=== PATIENT | female | born 1975 | race Caucasian/White ===

== ENCOUNTER 2019-01-30 12:05 | Emergency (ER) | payer MEDICAID ==
[~2019-01-30] VITALS: Ht 157.5 cm; Wt 65.9 kg
[~2019-01-30 12:05] MED LIST: ASPI-144 PO; ONDA4TAB12 PO
[2019-01-30 12:22] VITALS: BP 150/109
== END 2019-01-30 13:43 | disposition home or self-care (01) ==
LOC: ER 12:05
DX: S80.12XA Contusion of left lower leg, initial encounter (principal); F10.99 Alcohol use, unspecified with unspecified alcohol-induced disorder; Z59.0 Homelessness; Z56.0 Unemployment, unspecified; Z79.899 Other long term (current) drug therapy; X58.XXXA Exposure to other specified factors, initial encounter; Y93.89 Activity, other specified; Y92.89 Other specified places as the place of occurrence of the external cause; Y99.8 Other external cause status; Y90.9 Presence of alcohol in blood, level not specified
CPT/HCPCS: 99281

== ENCOUNTER 2019-09-23 11:16 | Emergency (ER) | payer MEDICAID ==
[~2019-09-23] VITALS: Ht 157.5 cm; Wt 61.4 kg
[2019-09-23 11:26] VITALS: BP 144/100
[2019-09-23] MEDS ORDERED: ALBU8HFA PO (11:34)
[2019-09-23] MEDS ORDERED: PRED20TA PO (11:34)
== END 2019-09-23 12:29 | disposition home or self-care (01) ==
LOC: ER 11:18
DX: J06.9 Acute upper respiratory infection, unspecified (principal); R05 Cough; Z20.828 Contact with and (suspected) exposure to other viral communicable diseases; Z72.89 Other problems related to lifestyle; Z59.0 Homelessness; Z79.899 Other long term (current) drug therapy
CPT/HCPCS: 36415; 71045; 99284; U0003

== ENCOUNTER 2021-04-17 11:52 | Emergency (ER) | payer MEDICAID ==
[~2021-04-17] VITALS: Ht 157.5 cm; Wt 63.6 kg
[2021-04-17 12:21] VITALS: BP 161/114
[2021-04-17] MEDS ORDERED: TRAM50TA2 PO (12:26)
[2021-04-17] MEDS ORDERED: PENI250T2 PO (12:26)
[2021-04-17] MEDS ORDERED: NAPR-56 PO (12:26)
== END 2021-04-17 14:07 | disposition home or self-care (01) ==
LOC: ER 11:52
DX: K04.7 Periapical abscess without sinus (principal); K08.89 Other specified disorders of teeth and supporting structures; Z72.89 Other problems related to lifestyle; Z59.00 Homelessness unspecified; Z88.2 Allergy status to sulfonamides; Z88.8 Allergy status to other drugs, medicaments and biological substances; Z79.899 Other long term (current) drug therapy; Z79.82 Long term (current) use of aspirin
CPT/HCPCS: 99283

== ENCOUNTER 2024-08-28 10:27 | Emergency (ER) | payer BC ==
[~2024-08-28] VITALS: Ht 154.9 cm; Wt 70.0 kg
[~2024-08-28 10:27] MED LIST changes: +ONDA-243 PO; -ONDA4TAB12 PO; +PERM60CR27 TOP
[2024-08-28 10:29] VITALS: BP 128/53; PULSE 100; RESP 16; TEMP 97.5; O2SAT 99
[2024-08-28] MEDS ORDERED: MUPI22OI30 TOP (10:57)
--- NOTE | 2024-08-28 10:59 | Physician Documentation ---
HPI ~ General Chief Complaint: Medication Refill Stated Complaint: RASH ON L LEG Time Seen by MD: 10:52 Primary Medical Doctor: none Source: patient Mode of Arrival: POV Exam Limitations: no limitations History of Present Illness HPI Comments 49-year-old female who is here to get a prescription for Bactroban. She states she is on oral antibiotics but was told to apply the Bactroban to the wounds on her legs as well and she ran out. She brought the emptying prescription with her to the ER. 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 Patient denies any other concerns or complaints and states that the wounds are healing well and she is already seeing someone who is monitoring her for this. You Medication Reconciliation Allergies: Coded Allergies: No Known Allergies (Unverified , 08/28/24) Scheduled Permethrin 5% Cream* (Elimite 5% Cream*), 1 APPLIC TOP ONCE Scheduled PRN Aspirin/Acetaminophen/Caffeine (Excedrin Migraine Tablet), 2 TAB PO DAILY PRN for headache ONDANSETRON ODT 4mg tablet (Ondansetron Odt), 1 TABLET PO Q6H PRN for nausea/vomiting Past Medical History Past Medical History: No Pertinent History Past Surgical History: no surgical history Alcohol Use: Occasionally Drug Use: none Lives with: Spouse Lives In: Homeless Occupation: employed Review of Systems All Other Systems at this time: Reviewed and Negative Physical Exam Physical Exam Vital Signs: Temperature: 97.5, Source: Temporal, Heart Rate: 100, Respiratory Rate: 16, BP: 128/53, Pulse Oximetry: 99, Weight: 70.000 Oxygen Flow Rate: 0 Physical Exam General Appearance: Alert, WD/WN. NAD. HEENT: NCAT, PERRL, EOMI. Neck: Supple, trachea midline. Cardiovascular: RRR. No m/r/g. Lungs: CTAB. Breathing unlabored Extremities: Normal inspection. Wounds on left and right lower leg are wrapped with a clean gauze Neurological: Alert and oriented x4, normal gait. Psychiatric: Affect congruent with mood. Progress Results/Orders Results/Orders Vital Signs 08/28/24 10:29 Temp 97.5 Pulse 100 Resp 16 B/P (MAP) 128/53 Pulse Ox 99 O2 Flow Rate 0 Medical Decision Making Differential Dx:Considerations: Include: Adverse circumstances, Economic, Psychosocial, Medical services unavail., Medication refill, Medication non- compliance, Other Departure Time of Disposition: 10:56 Disposition: 01 HOME / SELF CARE / HOMELESS Impression: Primary Impression: Open leg wound Qualified Codes: S81.801A - Unspecified open wound, right lower leg, initial encounter; S81.802A - Unspecified open wound, left lower leg, initial encounter Condition: Stable Discharge Instructions: How to Change Your Wound Dressing, [id number] Additional Instructions: APPLY BACTROBAN TO WOUNDS AND KEEP COVERING WITH GAUZE YOU HAVE BEEN DOING. CONTINUE YOUR ORAL ANTIBIOTIC AND FOLLOW UP WITH THE PROVIDER WHO IS FOLLOWING YOU FOR THESE WOUNDS PLANNED IF INCREASING PAIN, REDNESS, SWELLING, RETURN TO ER. Referrals: NO PRIMARY CARE PROVIDER (PCP) Prescriptions Mupirocin* (Bactroban*) 22 Gm Tube 1 APPLIC TOP Q8H for 7 Days, #22 GM apply to affected area(s) Prov: CAILIN ROSALES 08/28/24 Education Educated: Patient Educated regarding: diagnosis, treatment, need for follow up Signature Scribe Signature: x Attestation: CAILIN Vega Aug 28, 2024 10:59
== END 2024-08-28 11:10 | disposition home or self-care (01) ==
LOC: ER 10:27
DX: S81.801A Unspecified open wound, right lower leg, initial encounter (principal); Z79.82 Long term (current) use of aspirin; X58.XXXA Exposure to other specified factors, initial encounter; Y93.89 Activity, other specified; Y92.89 Other specified places as the place of occurrence of the external cause; Y99.8 Other external cause status
CPT/HCPCS: 99283